=== PATIENT | female | born 1990 ===

== ENCOUNTER 2021-08-04 02:14 | Inpatient (IN) | payer OTHER ==
[2021-08-04 07:00] VITALS: BP 100/48
--- NOTE | 2021-08-04 08:08 | NUR ---
PT WAS A DIRECT ADMIT FROM [place].ADMISSION COMPLETED.PT C/O ABD PAIN,MANAGED WITH MED.PT NPO SINCE ADMIT.PT RESTING ON HER BED.REPORT TO AM NURSE.
[2021-08-04 08:13] LABS: HEMATOCRIT 33.3 % (37.0-47.0); HEMOGLOBIN 11.3 gm/dL (12.0-15.0); MCH 30.1 pg (26.0-34.0); MCHC 33.8 g/dL (28.0-37.0); MCV 89.1 fL (80.0-100.0); RBC 3.74 mil/uL (4.20-5.00); RDW 13.6 % (10.5-14.5); WBC 3.7 thou/uL (4.0-11.0)
[2021-08-04 08:40] LABS: CALCIUM 8.7 mg/dL (8.5-10.1); CREATININE 0.6 mg/dL (0.6-1.0); POTASSIUM 4.2 mmol/L (3.5-5.1)
--- NOTE | 2021-08-04 11:06 | NUR ---
Assumed care of pt at 0700. Pt a&ox4. Abd pain controlled with prn pain medications. IVF infusing. Pt states she would like to eat or drink something. Surgeon was contacted and stated pt can be on a regular diet. Call light within reach. Will continue to monitor.
[2021-08-04 16:00] VITALS: BP 103/54
[2021-08-05 07:26] VITALS: BP 105/65
--- NOTE | 2021-08-05 08:42 | NUR ---
PT AMBULATING TO BATHROOM INDEPENDENTLY AND IS TOLERATING WELL. FENTANYL PROVIDING PAIN RELIEF. RESTING COMFORTABLY. NO NEEDS VOICED. CALL LIGHT WITHIN REACH. FREQUENT OBSERVATION.
--- NOTE | 2021-08-05 10:34 | NUR ---
Assumed care of pt at 0700. Pt a&ox4. IVF infusing. Pain controlled. Undergoing surgery today. Will continue to monitor.
[2021-08-05 21:16] VITALS: BP 98/66
[2021-08-06 05:33] LABS: HEMATOCRIT 31.6 % (37.0-47.0); HEMOGLOBIN 10.6 gm/dL (12.0-15.0); MCHC 33.6 g/dL (28.0-37.0); MCV 89.4 fL (80.0-100.0); RBC 3.54 mil/uL (4.20-5.00); RDW 13.3 % (10.5-14.5); WBC 7.5 thou/uL (4.0-11.0)
[2021-08-06 06:02] LABS: CALCIUM 8.4 mg/dL (8.5-10.1); CREATININE 0.6 mg/dL (0.6-1.0); POTASSIUM 3.7 mmol/L (3.5-5.1)
--- NOTE | 2021-08-06 08:05 | O ---
[facility] [place] [address] OPERATIVE REPORT Name: YASMINE JEFFREY Room #: 448-P ADM IN M.R.#: [id number] Admission: 08/04/21 Attend Phys: Henrique Cobb MD Discharge: Date of : 89 Report #: [id number] THIS REPORT FOR: cc: FAM - No family physician/PCP FAM - No family physician/PCP Duane Foreman MD ~ DATE OF SERVICE: 08/05/2021 POSTOPERATIVE DIAGNOSIS: Incarcerated ventral incisional hernia. POSTOPERATIVE DIAGNOSIS: Incarcerated ventral incisional hernia. OPERATION: Laparoscopic repair of incarcerated ventral incisional hernia with mesh. SURGEON: Duane Foreman MD ANESTHESIA: General. ESTIMATED BLOOD LOSS: Minimal. SPECIMENS: None. DESCRIPTION OF PROCEDURE: After informed consent was obtained, the patient was brought to the operating room and placed supine. SCDs were placed and working, preoperative antibiotics were administered, general anesthesia was induced. The abdomen was prepped and draped in the usual sterile fashion. A 5 mm incision was made in the left upper quadrant. A 5 mm trocar was placed under direct vision. Pneumoperitoneum was established. Right and left lower quadrant trocars were placed. The left-sided trocar was a 12 mm trocar. The abdomen was examined. She had some adhesions of the omentum up to abdominal wall and these were taken down sharply with cautery. I then was able to visualize the hernia. This was in the lower midline. This corresponded with the CT findings as well. Defect measured approximately 2 cm. There was a defect also in the midline superior to this measuring approximately 4 cm. I therefore elected to repair all of these at the same time. A Bard Echo mesh was brought into the field. It was trimmed so that it was approximately 25 x 20 cm. It was brought into the abdomen and it was insufflated. It was tacked with approximately 50 absorbable tacks. I then placed 4 transfascial [place]-Gerson sutures using a PMI suture passer. These were done in 4 quadrants superiorly and laterally. This covered both the lower defect and the upper midline defect as well. The defects were covered widely. The ports were removed under direct vision. The port site at the left 12 mm site was closed with a [id number] 0 Vicryl. Skin was closed with 4-0 Monocryl. Incisions were dressed with Steri-Strips. [address] [address] OPERATIVE REPORT Name: YASMINE JEFFREY Room #: 448-P [facility] IN .R.#: [id number] Admission: 08/04/21 Attend Phys: Henrique Cobb MD Discharge: Date of : 89 Report #: [id number] COMPLICATIONS: None. DISPOSITION: The patient was taken to recovery in satisfactory condition. <ELECTRONICALLY SIGNED> By: Duane Foreman MD 08/06/21 [id number] Duane Foreman MD /avery
--- NOTE | 2021-08-06 08:40 | NUR ---
PT AMBULATING IN HALLWAYS INDEPENDENTLY AND IS TOLERATING FAIR. LORTAB ALTERNATED WITH FENTANYL PROVIDING PARTIAL PAIN RELIEF. ZOFRAN NAUSEA RELIEF. RESTING PERIODICALLY. CALL LIGHT WITHIN REACH. FREQUENT OBSERVATION.
--- NOTE | 2021-08-06 08:56 | NUR ---
A/O X 4. ROOM AIR. AD ROSANGELA. AMBULATES IN HALLWAYS. RIGHT AC PIV WITH NS INFUSING @ 75 MLS/HR. CONT B/B. 12 ABD LAP SITES, DERMABOND, STERI STRIPS INTACT, ABD PAIN 6/10 NORCO PRN GIVEN. NO NAUSEA NOTED.
[2021-08-06 16:23] VITALS: BP 107/63
[2021-08-06 19:53] VITALS: BP 105/57
--- NOTE | 2021-08-07 00:15 | NUR ---
ASSESSMENT COMPLETED. PT IS PLEASANT AND COOPEARTIVE, NAUSEA RESOLVED. NO EMESIS. ZOFRAN GIVEN PROPHYLACTIC BEFORE HS MEDS. PAIN WELL MANAGED, SHE HAS AMBULATED THE HALLS A FEW TIMES. BOWEL SOUNDS ACTIVE. NO BM YET. REPORTS PASSING A LITTLE GAS. LAP SITES TO ABDOMEN ALL LOOK OKAY WITH STERI STRIPS AND DERMABAND.CONTINUES ON IV FLUIDS.AFEBRILE. LOOKING FORWARD TO DISCHARGING SOON.WILL CONTINUE WITH POC TILL EOS.
[2021-08-07 06:28] LABS: HEMATOCRIT 28.9 % (37.0-47.0); HEMOGLOBIN 9.9 gm/dL (12.0-15.0); MCH 30.8 pg (26.0-34.0); MCHC 34.2 g/dL (28.0-37.0); MCV 90.2 fL (80.0-100.0); RBC 3.2 mil/uL (4.20-5.00); RDW 13.9 % (10.5-14.5); WBC 3.8 thou/uL (4.0-11.0)
[2021-08-07 06:47] LABS: CALCIUM 8.4 mg/dL (8.5-10.1); CREATININE 0.6 mg/dL (0.6-1.0); POTASSIUM 3.5 mmol/L (3.5-5.1)
[2021-08-07 07:56] VITALS: BP 107/68
[2021-08-07] MEDS ORDERED: PROTONIX40 M2 PO (12:52)
[2021-08-07] MEDS ORDERED: HYDROCODON-ACE1 EAC7 PO (12:53)
[2021-08-07 15:02] VITALS: BP 107/68
--- NOTE | 2021-08-07 15:58 | NUR ---
IV REMOVED WITHOUT DIFFICULTY, CATHETER INTACT. PRESSURE DRESSING APPLIED TO SITE. DISCHARGE PAPERS REVIEWED WITH PATIENT AND . ALL QUESTIONS ANSWERED APPROPRIATELY. PT LEFT WITH TECH IN STABLE CONDITION, NORMAL RISE AND FALL OF CHEST SEEN, NO RESPIRATORY DISTRESS NOTED AT THIS TIME. PT D/C TO HOME WITH .
== END 2021-08-07 16:00 | disposition home or self-care (01) | DRG 354 ==
LOC: 4S 02:14
PROVIDERS: Nurse Practitioner Family; ADMIT Hospitalist; ATTEND Hospitalist
PROC: 0WUF4JZ Supplement Abdominal Wall with Synthetic Substitute, Percutaneous Endoscopic Approach (ICD-10-PCS; principal; 2021-08-05)
DX: K43.2 Incisional hernia without obstruction or gangrene (principal); K56.600 Partial intestinal obstruction, unspecified as to cause; F90.9 Attention-deficit hyperactivity disorder, unspecified type; Z20.822 Contact with and (suspected) exposure to COVID-19; Z83.3 Family history of diabetes mellitus; Z82.49 Family history of ischemic heart disease and other diseases of the circulatory system; Z80.8 Family history of malignant neoplasm of other organs or systems
CPT/HCPCS: 10195; 50101; 50386; 50555; 50687; 50848; 50857; 51489; 52265; 52266; 53307; 54022; 56525; 56526; 56530; 57092; 58574; 58911; 62110; 62900; 70005